=== PATIENT | female | born 2000 | race African-American/Black ===

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

== ENCOUNTER 2019-05-22 12:53 | Emergency (ER) | payer OTHER | END 2019-05-22 14:11 | disposition left against medical advice (07) | LOC: ERS 12:53 | DX: Z53.21 Procedure and treatment not carried out due to patient leaving prior to being seen by health care provider (principal) ==

== ENCOUNTER 2019-06-03 19:55 | Emergency (ER) | payer OTHER, SELFPAY ==
[2019-06-03 20:20] LABS: Pregnancy Test - Urine (BHCG) POSITIVE (Negative); Pregu Control Background? CLEAR/WHITE (CLR/WHITE); Pregu Control Bar Appear? YES (CONTROL BAR)
[2019-06-03 20:23] LABS: Bacteria/HPF None Seen HPF (None Seen); Bilirubin Negative (Negative); Blood, Urine Negative (Negative); Clarity Turbid (Clear); Glucose, Urine (Dipstick) Normal (Negative); Leukocyte 75 Leu/uL (Negative); Mucous/LPF Rare LPF (<2+); Nitrite Negative (Negative); Protein, Urine (Dipstick) 10 mg/dL (Neg-Trace); RBC/HPF 0-3 HPF (0-3); Renal Epithelial 0-3 HPF (None Seen); Urobilinogen Normal mg/dL (Less than 2); WBC/HPF 0-3 HPF (0-3)
[2019-06-03 20:38] LABS: #Basophils 0.1 thou/uL (0.0-0.2); #Eosinphils 0.1 thou/uL (0.0-0.7); #Lymphocytes 2.4 thou/uL (1.20-3.40); #Monocytes 0.6 thou/uL (0.11-0.59); #Neutrophils 3.7 thou/uL (1.40-6.50); %Basophils 1.3 % (0.0-1.0); %Lymphocytes 34.5 % (28.0-48.0); %Monocytes 8.4 % (0.0-4.0); %Neutrophils 53.8 % (31.0-61.0); Mean Corpuscular HGB CONC 33.9 g/dL (32.0-36.0); Mean Corpuscular Hemoglobin 30.3 pg (25.0-35.0); Mean Corpuscular Volume 89.4 fL (78.0-98.0); Mean Platelet Volume 7.5 fL (7.4-10.4); Platelet Count 219 thou/uL (130-400); RBC Distribution Width 13.2 % (11.5-14.5); Red Blood Cell (RBC) Count 3.95 mill/uL (4.00-5.20); White Blood Cell (WBC) Count 6.8 thou/uL (4.8-10.8)
[2019-06-03 20:58] LABS: ALT (SGPT) 7 U/L (8-55); AST (SGOT) 14 U/L (5-30); Albumin 4.1 g/dL (3.5-5.0); Alkaline Phosphatase 53 U/L (40-100); Anion Gap 11 mmol/L (10-20); BUN (Urea Nitrogen) 7 mg/dL (8.4-21.0); Bilirubin, Total Less than 0.2 mg/dL (0.2-1.2); Calc. Creatinine Clearance 0 mL/min (70-130); Calcium 9.3 mg/dL (7.8-10.44); Carbon Dioxide 26 mmol/L (22-29); Chloride 103 mmol/L (98-107); Estimated GFR-MDRD Greater than 90; Glucose 93 mg/dL (70-105); Potassium 3.9 mmol/L (3.5-5.1); Protein, Total 7.1 g/dL (6.0-8.3); Sodium 136 mmol/L (136-145)
--- NOTE | 2019-06-03 22:59 | ULT ---
EXAM: OB ultrasound COMPARISON: None HISTORY: female with lower abdominal pain TECHNIQUE: Multiplanar grayscale and color Doppler images were obtained in a transabdominal ult rasound. FINDINGS: There is a single live intrauterine with heart rate of 149 bpm. Estimated weight is 140 g. Average age of the fetus based off today's examination is 16 weeks 0 days. BPD 3.20 cm -- 16 weeks 0 days HC 11.97 cm -- 16 weeks 0 days AC 9.80 cm -- 15 weeks 6 days FL 2.02 cm -- 16 weeks 0 days The placenta is posterior in location without focal abnormality. Amniotic fluid volume is subjectivel y within normal limits. The cervix is normal in length. There is no evidence of placenta previa. IMPRESSION: Single live intrauterine with estimated age of 16 weeks 0 days.
== END 2019-06-04 00:13 | disposition home or self-care (01) ==
LOC: ERS 19:55
DX: O99.89 Other specified diseases and conditions complicating pregnancy, childbirth and the puerperium (principal); R10.30 Lower abdominal pain, unspecified; Z3A.16 16 weeks gestation of pregnancy
CPT/HCPCS: 36415; 76856; 80053; 81003; 81015; 81025; 84702; 85025; 86900; 86901; 93976

== ENCOUNTER 2019-11-13 16:43 | Day surgery (SDC) | payer OTHER ==
[2019-11-13] MEDS ORDERED: hydrALAZINE 20 MG/ML VIAL SLOW IVP PRN (17:01)
--- NOTE | 2019-11-13 17:03 | PDOC.LDHP ---
Labor and Delivery H&P Chief complaint: contractions HPI: 18 y/o G1 at 40w4d presents with ctx for the last few hours. Denies VB, LOF, or decreased FM. Reports she saw Dr. Quintero in first trimester but has otherwise not had care. ROS neg for HEENT, cv, pulm, gi, gu, neuro, psych, skin, musculoskeletal or constitutional symptoms other than mentioned above. OB History Details: First Current complications: none Past Medical History: None Current medications: none Previous surgical history: none Social history: none - Physical Exam Vital signs reviewed and normal: yes General: NAD, resting Lungs: nonlabored breathing Abdomen: gravid Extremeties: no edema FHT: category 1 (130s, mod variability, + accels, no decels) [place] contractions every: irregular - Vaginal Exam cm dilated: 2 Effacement: 50% Station: -2 - OB Labs Blood type: O RH: positive
[2019-11-13 17:22] VITALS: BP 132/85; TEMP 99.9; BMI 30.7
--- NOTE | 2019-11-13 17:32 | PDOC.LDHP ---
Labor and Delivery H&P Chief complaint: contractions HPI: 18 y/o G1 at 38w6d, patient of Dr. Yoon, presents with ctx. Denies VB, LOF, or decreased FM. ROS neg for HEENT, cv, pulm, gi, gu, neuro, psych, skin, musculoskeletal or constitutional symptoms other than mentioned above. OB History Details: First Current complications: none Past Medical History: None Current medications: pre-gray vitamins Previous surgical history: none Allergies/Adverse Reactions: Allergies Allergy/AdvReac Type Severity Reaction Status Date / Time penicillin G Allergy Verified 11/13/19 17:23 Social history: none - Physical Exam Vital signs reviewed and normal: yes General: NAD, resting Lungs: nonlabored breathing Abdomen: gravid Extremeties: no edema FHT: category 1 (120s, mod variability, + accels, no decels) [place] contractions every: 2 min - Vaginal Exam cm dilated: 2 (Unchanged after 2 hours) Effacement: 75% Station: -1 - Assessment 18 y/o G1 at 38w6d with no e/o active labor. Reports ctx are less painful and less frequent. status reassuring with reactive NST. - Plan -: D/c home with precautions. Advised to keep all appointments.
== END 2019-11-13 20:13 | disposition home or self-care (01) ==
LOC: L&D/OP 16:43
PROVIDERS: ATTEND Obstetrics & Gynecology
DX: O47.1 False labor at or after 37 completed weeks of gestation (principal); Z3A.38 38 weeks gestation of pregnancy; Z88.1 Allergy status to other antibiotic agents
CPT/HCPCS: 99283

== ENCOUNTER 2019-11-14 01:54 | Inpatient (IN) | payer OTHER ==
[2019-11-14] MEDS ORDERED: Lactated Ringer's 1,000 ML IV SCH (02:30)
[2019-11-14] MEDS: Butorphanol Tartrate 1 MG/ML VIAL SLOW IVP PRN ×2 (02:47→05:18)
[2019-11-14] MEDS ORDERED: HYDROcodone/Acetaminophen 5/325 mg Tablet PO PRN ×4 (04:24→16:06)
[2019-11-14] MEDS ORDERED: Ibuprofen 800 MG TAB PO PRN (04:24)
[2019-11-14] MEDS ORDERED: Ondansetron PF 4 MG/2 ML Vial IVP PRN ×3 (04:24→16:06)
[2019-11-14] MEDS ORDERED: Acetaminophen 500 MG TAB PO PRN (04:24)
[2019-11-14] MEDS ORDERED: Carboprost 250 MCG/ML AMP IM PRN (04:24)
[2019-11-14] MEDS ORDERED: Promethazine HCl 25 MG/ML VIAL IM PRN ×2 (04:24→07:33)
[2019-11-14] MEDS ORDERED: Diphenoxylate HCl/Atropine Tablet PO PRN ×2 (04:24)
[2019-11-14] MEDS ORDERED: NS / Oxytocin 40 units/1000ml 1,000 ML IV PRN (04:24)
[2019-11-14] MEDS ORDERED: Lidocaine 1% (PF) 30 ML VIAL SC PRN (04:24)
[2019-11-14] MEDS ORDERED: Methylergonovine 0.2 MG/ML VIAL IM PRN (04:24)
[2019-11-14] MEDS ORDERED: Misoprostol 200 MCG TAB PR PRN (04:24)
[2019-11-14] MEDS ORDERED: Vancomycin HCl 1.5 GM in Sodium Chloride 0.9% 250 ML 300 ML IVPB SCH (04:30)
[2019-11-14 04:32] VITALS: BMI 30.7
[2019-11-14] MEDS ORDERED: Vancomycin 1.5 GRAM/300 ML BAG 1.5 GM in Premix Bag 1 BAG IVPB SCH ×2 (04:45→14:00)
[2019-11-14] MEDS: Lactated Ringer's 1,000 ML IV SCH ×2 (05:08→16:05)
[2019-11-14 05:22] LABS: Hemoglobin 11.3 g/dL (12.0-16.0); Mean Corpuscular HGB CONC 33.2 g/dL (32.0-36.0); Mean Corpuscular Hemoglobin 28.8 pg (25.0-35.0); Mean Corpuscular Volume 86.7 fL (78.0-98.0); Mean Platelet Volume 9.6 fL (7.4-10.4); Platelet Count 270 thou/uL (130-400); RBC Distribution Width 13.7 % (11.5-14.5); Red Blood Cell (RBC) Count 3.94 mill/uL (4.00-5.20); White Blood Cell (WBC) Count 10.7 thou/uL (4.8-10.8)
[2019-11-14 06:09] LABS: HBSAg Index 0.21 S/CO (0-0.99); Hep B Surf Ag Non-Reactive S/CO (NonReactive); Syphilis Antibody Nonreactive (Nonreactive)
[2019-11-14] MEDS: hydrALAZINE 20 MG/ML VIAL SLOW IVP PRN ×2 (06:15→11:27)
[2019-11-14] MEDS ORDERED: Fentanyl 4 mcg/Bup 0.1% Cadd 100 ML ONE (06:27)
[2019-11-14] MEDS ORDERED: Acetaminophen 325 MG TAB PO PRN (07:33)
[2019-11-14] MEDS ORDERED: EPHEDRINE 25 MG/5 ML SYRINGE SLOW IVP PRN (07:33)
[2019-11-14] MEDS ORDERED: diphenhydrAMINE 50 MG/ML VIAL IVP PRN (07:33)
[2019-11-14] MEDS ORDERED: Naloxone HCl 0.4 mg/ml Vial IVP PRN ×2 (07:33)
[2019-11-14] MEDS ORDERED: Lactated Ringer's 500 ML IV PRN (07:33)
[2019-11-14] MEDS ORDERED: Communication Order-Pharmacy FS SCH (07:45)
[2019-11-14] MEDS ORDERED: Fentanyl 4 mcg/Bupivacaine 0.1% Cassette 100 ML EPIDURAL SCH (07:45)
--- NOTE | 2019-11-14 08:34 | PDOC.LDHP ---
Labor and Delivery H&P Chief complaint: contractions HPI: Pt presents w painful ctx. Current gestational age (weeks): 39 Due date: 11/21/19 Dating criteria: last menstrual period, second trimester ultrasound Grav: 1 Para: 0 Current complications: none Abnormal US findings: No Current medications: pre-gray vitamins Previous surgical history: none Allergies/Adverse Reactions: Allergies Allergy/AdvReac Type Severity Reaction Status Date / Time penicillin G Allergy Verified 11/13/19 17:23 Social history: none - Physical Exam Vital signs reviewed and normal: yes Abnormal vital signs: mild range BP with an isolated severe range noted General: breathing through contractions Heart: RRR Lungs: CTAB Abdomen: gravid Extremeties: no edema FHT: category 1 - Vaginal Exam cm dilated: 10 Effacement: 100% Station: 1+ - OB Labs Blood type: O RH: positive Antibody Screen: negative HIV: negative RPR: negative HEPSAg: negative 1 hour GCT: negative GBS: positive Urine drug screen: negative Rubella: immune - Assessment L&D Assessment: term patient in labor - Plan Plan: admit to L&D, GBS antibiotic prophylaxis, informed consent obtained, anesthesia consult for pain management -: Pt presented in labor @ 4cm, has progressed to 10cm and +1. Will transition to 2nd stage. FHT reassuring, Vancomycin x 1 given for GBS pos, PCN allergy and clinda resistance.
[2019-11-14] MEDS ORDERED: Bupivacaine 0.25% HCL 30 ML VIAL ONE (09:05)
--- NOTE | 2019-11-14 11:16 | PDOC.OPDEL ---
OB Operative/Delivery Note Delivery Dr/Surgeon: Car Pre-Delivery Diagnosis: active labor Procedure/Post Delivery Dx: spontaneous vaginal delivery Weeks gestation: 39 Anesthesia: epidural - Findings A Sex: female - Additional Findings/Plan Placenta delivered: spontaneous Repaired Obstetrical Laceration: none Estimated blood loss: 100ml Post delivery plan: routine recovery
[2019-11-14] MEDS ORDERED: hydrALAZINE 20 MG/ML VIAL ONE (11:25)
[2019-11-14] MEDS ORDERED: Calcium Gluconate 4.6 MEQ in Sodium Chloride 0.9% 100 ML IVPB PRN (11:33)
--- NOTE | 2019-11-14 11:33 | PDOC.EVN ---
Event Note - Event Note Event Note: Pt w severe range BP, now requiring hydralazine. Will start magnesium for seizure prophylaxis.
[2019-11-14] MEDS ORDERED: Magnesium Sulfate 20 GM/WATER 500 ML BAG IVPB SCH (11:45)
[2019-11-14] MEDS: Magnesium Sulfate 20 gm/500 ml 20 GM/500 ML BAG IVPB SCH ×2 (12:34→21:30)
[2019-11-14] MEDS ORDERED: Benzocaine-Menthol 82.5 ML CAN TOP PRN (16:06)
[2019-11-14] MEDS ORDERED: hydrALAZINE 20 MG/ML VIAL SLOW IVP PRN (16:06)
[2019-11-14] MEDS ORDERED: Lanolin Ointment 7 GM TUBE TOP PRN (16:06)
[2019-11-14] MEDS ORDERED: NS / Oxytocin 40 units/1000ml 1,000 ML IV SCH (16:06)
[2019-11-14] MEDS ORDERED: Bisacodyl 10 MG SUPP PR PRN (16:06)
[2019-11-14] MEDS ORDERED: diphenhydrAMINE 25 MG CAP PO PRN (16:06)
[2019-11-14] MEDS ORDERED: Milk Of Magnesia 30 ML UDCUP PO PRN (16:06)
[2019-11-14] MEDS: Ibuprofen 800 MG TAB PO SCH (21:30)
[2019-11-14] MEDS: Docusate Calcium (SURFAK) 240 MG CAP PO SCH (21:37)
[2019-11-14] MEDS ORDERED: NIFEdipine 10 MG CAP PO PRN (21:51)
[2019-11-15] MEDS: Ferrous Sulfate 325 MG TAB PO SCH ×3 (02:09→18:06)
[2019-11-15] MEDS: Lactated Ringer's 1,000 ML IV SCH ×2 (02:09→08:05)
[2019-11-15 06:49] LABS: Hemoglobin 9.9 g/dL (12.0-16.0)
[2019-11-15 07:12] LABS: ALT (SGPT) 7 U/L (8-55); AST (SGOT) 20 U/L (5-30); Albumin 2.7 g/dL (3.5-5.0); Alkaline Phosphatase 191 U/L (40-100); Anion Gap 10 mmol/L (10-20); BUN (Urea Nitrogen) Less than 4 mg/dL (8.4-21.0); Bilirubin, Total 0.3 mg/dL (0.2-1.2); Calc. Creatinine Clearance 162 mL/min (70-130); Calcium 6.8 mg/dL (7.8-10.44); Carbon Dioxide 27 mmol/L (22-29); Chloride 104 mmol/L (98-107); Estimated GFR-MDRD Greater than 90; Globulin 2.5 g/dL (2.4-3.5); Glucose 81 mg/dL (70-105); Protein, Total 5.2 g/dL (6.0-8.3); Sodium 138 mmol/L (136-145)
[2019-11-15] MEDS: Magnesium Sulfate 20 gm/500 ml 20 GM/500 ML BAG IVPB SCH (08:05)
[2019-11-15] MEDS: Ibuprofen 800 MG TAB PO SCH ×2 (08:05→16:28)
[2019-11-15] MEDS: Docusate Calcium (SURFAK) 240 MG CAP PO SCH ×2 (08:06→21:48)
--- NOTE | 2019-11-15 08:11 | PDOC.PP ---
Post Progress Note Post Day #: 1 Subjective: doing well, hungry, had some chest pain last night that she said resolved w position change, baby doing well PO intake tolerated: yes Flatus: yes Ambulation: yes Weight Weight 185 lb 120-140/70-90s - Physical Examination General: NAD Respiratory: non-labored breathing Abdominal: no distention Skin: no rash Neurological: no gross focal deficits Psychiatric: A&Ox3, normal affect Result Diagrams: 11/15/19 06:31 11/15/19 06:31 Additional Labs: Post Labs Blood Type O POSITIVE 11/14/19 05:10 Hep Bs Antigen Non-Reactive S/CO (NonReactive) 11/14/19 05:10 (1) Severe preeclampsia Code(s): O14.10 - SEVERE PRE-ECLAMPSIA, UNSPECIFIED TRIMESTER Status: Acute (2) Vaginal delivery Code(s): O80 - ENCOUNTER FOR FULL-TERM UNCOMPLICATED DELIVERY Status: Acute - Assessment/Plan PPD1 on magnesium, doing well BP mild range overnight. Discussed regular diet, DC mag at noon and monitor BP on PP.
[2019-11-15] MEDS ORDERED: Adacel (T-DAP) 0.5 ML SYRINGE IM ONE (09:00)
[2019-11-15] MEDS ORDERED: Prenatal Vitamin 1 TAB PO SCH (09:00)
[2019-11-15] MEDS ORDERED: Bisacodyl 10 MG SUPP PR PRN (15:04)
[2019-11-15] MEDS ORDERED: diphenhydrAMINE 25 MG CAP PO PRN (15:04)
[2019-11-15] MEDS ORDERED: HYDROcodone/Acetaminophen 5/325 mg Tablet PO PRN ×2 (15:04)
[2019-11-15] MEDS ORDERED: NS / Oxytocin 40 units/1000ml 1,000 ML IV SCH (15:04)
[2019-11-15] MEDS ORDERED: Milk Of Magnesia 30 ML UDCUP PO PRN (15:04)
[2019-11-15] MEDS ORDERED: Ondansetron PF 4 MG/2 ML Vial IVP PRN (15:04)
[2019-11-15] MEDS ORDERED: hydrALAZINE 20 MG/ML VIAL SLOW IVP PRN (15:04)
[2019-11-15] MEDS ORDERED: Benzocaine-Menthol 82.5 ML CAN TOP PRN (15:04)
[2019-11-15] MEDS ORDERED: Lanolin Ointment 7 GM TUBE TOP PRN (15:04)
[2019-11-16] MEDS: Ibuprofen 800 MG TAB PO SCH ×3 (00:57→08:51)
[2019-11-16] MEDS: Ferrous Sulfate 325 MG TAB PO SCH (08:28)
[2019-11-16] MEDS: Docusate Calcium (SURFAK) 240 MG CAP PO SCH (08:28)
[2019-11-16] MEDS: Lactated Ringer's 1,000 ML IV SCH (08:51)
[2019-11-16] MEDS ORDERED: Prenatal Vitamin 1 TAB PO SCH (09:00)
--- NOTE | 2019-11-16 10:17 | PDOC.PP ---
Post Progress Note Post Day #: 2 Subjective: doing well, no PIH sx, formula feeding PO intake tolerated: yes Flatus: yes Ambulation: yes Vital Signs (12 hours) Temp Pulse Resp BP Pulse Ox 11/16/19 08:41 99.0 F 69 20 144/79 H 96 11/16/19 05:00 98.6 F 71 18 130/85 11/16/19 00:50 98.9 F 75 18 143/83 H Weight Weight 185 lb - Physical Examination General: NAD Respiratory: non-labored breathing Abdominal: no distention Fundus firm & at: below umb Neurological: no gross focal deficits Psychiatric: A&Ox3, normal affect Result Diagrams: 11/15/19 06:31 11/15/19 06:31 Additional Labs: Post Labs Blood Type O POSITIVE 11/14/19 05:10 Hep Bs Antigen Non-Reactive S/CO (NonReactive) 11/14/19 05:10 (1) Severe preeclampsia Code(s): O14.10 - SEVERE PRE-ECLAMPSIA, UNSPECIFIED TRIMESTER Status: Acute (2) Vaginal delivery Code(s): O80 - ENCOUNTER FOR FULL-TERM UNCOMPLICATED DELIVERY Status: Acute - Assessment/Plan PPD2, doing well, mild to normal range BP off mag. Plan for DC later today if BP stable.
[2019-11-16] MEDS ORDERED: Sodium Chloride 0.9% 0 ML ONE (10:27)
[2019-11-16 11:52] VITALS: BP 141/87; TEMP 98.6
== END 2019-11-16 12:30 | disposition home or self-care (01) | DRG 807 ==
LOC: L&D/OP 01:54 → L&D 04:24 → 3SW 11-15 15:11
PROVIDERS: ADMIT Obstetrics & Gynecology; ATTEND Obstetrics & Gynecology
PROC: 10E0XZZ Delivery of Products of Conception, External Approach (ICD-10-PCS; principal; 2019-11-14)
DX: O14.14 Severe pre-eclampsia complicating childbirth (principal); Z37.0 Single live birth; O99.824 Streptococcus B carrier state complicating childbirth; Z3A.39 39 weeks gestation of pregnancy; Z88.0 Allergy status to penicillin
CPT/HCPCS: 36415; 51701; 80053; 83735; 85014; 85018; 85027; 86780; 86850; 86900; 86901; 87340; 99283; 99285; J0360; J0595; J3475; S0020

== ENCOUNTER 2019-12-03 01:24 | Emergency (ER) | payer OTHER | END 2019-12-03 01:55 | disposition home or self-care (01) | LOC: ERS 01:24 | DX: O99.63 Diseases of the digestive system complicating the puerperium (principal); K80.70 Calculus of gallbladder and bile duct without cholecystitis without obstruction ==

== ENCOUNTER 2019-12-21 05:35 | Outpatient (CLI) | payer OTHER ==
[2019-12-21 11:34] LABS: BHCG - Serum Negative (NEGATIVE); Pregs Control Background? CLEAR/WHITE (CLR/WHITE); Pregs Control Bar Appear? YES (CONTROL BAR)
[2019-12-21 11:36] LABS: Anion Gap 13 mmol/L (10-20); BUN (Urea Nitrogen) 13 mg/dL (8.4-21.0); Calc. Creatinine Clearance 0 mL/min (70-130); Calcium 8.8 mg/dL (7.8-10.44); Carbon Dioxide 23 mmol/L (22-29); Chloride 107 mmol/L (98-107); Estimated GFR-MDRD Greater than 90; Glucose 75 mg/dL (70-105); Potassium 3.5 mmol/L (3.5-5.1); Sodium 139 mmol/L (136-145)
[2019-12-21 12:46] LABS: Band 1 % (5-11); Eosinophils 1 % (0-10); Hemoglobin 11.4 g/dL (12.0-16.0); Hypochromia SLIGHT = 6-15 cells (100X) (0-5/hpf); Lymphocytes 55 % (28-48); MDiff Complete? YES; Mean Corpuscular HGB CONC 30.9 g/dL (32.0-36.0); Mean Corpuscular Hemoglobin 27.4 pg (25.0-35.0); Mean Corpuscular Volume 88.7 fL (78.0-98.0); Mean Platelet Volume 8.6 fL (7.4-10.4); Monocytes 5 % (0-4); Neutrophil 27 % (31-61); Platelet Count 232 thou/uL (130-400); Platelet Morphology Comment Appears Adequate; RBC Distribution Width 14.2 % (11.5-14.5); Reactive Lymphocytes 11 % (0-10); Red Blood Cell (RBC) Count 4.17 mill/uL (4.00-5.20); Target Cells SLIGHT = 2-5 cells (100X) (0-1/hpf); White Blood Cell (WBC) Count 4.2 thou/uL (4.8-10.8)
[2019-12-21 17:17] LABS: SARS-CoV-2 MS2 Positive; SARS-CoV-2 N Gene Negative; SARS-CoV-2 S Gene Negative; SARS-CoV-2 orf1ab Negative
== END 2019-12-21 05:36 | disposition home or self-care (01) ==
LOC: LABBT 05:35
PROVIDERS: ATTEND Surgery
DX: Z01.812 Encounter for preprocedural laboratory examination (principal); Z11.59 Encounter for screening for other viral diseases; K80.80 Other cholelithiasis without obstruction
CPT/HCPCS: 80048; 84703; 85025; 87635; U0003

== ENCOUNTER 2019-12-26 06:06 | Day surgery (SDC) | payer OTHER ==
[2019-12-21 08:54] VITALS: BMI 24.1
[2019-12-26] MEDS ORDERED: Bupivacaine 0.25% HCL 30 ML VIAL ONE (06:35)
[2019-12-26] MEDS ORDERED: Lidocaine 1% w/Epinephrine 1:100K 20 ML VIAL ONE (06:35)
[2019-12-26] MEDS ORDERED: Midazolam HCl 2 mg/2 ml Vial ONE (06:36)
[2019-12-26] MEDS ORDERED: Fentanyl 100 MCG/2 ML VIAL ONE (06:36)
[2019-12-26] MEDS ORDERED: Levofloxacin 500 mg/D5W 100 ml Premix Bag ONE (07:28)
[2019-12-26] MEDS ORDERED: Iothalamate Meglumine 60% 30 ML VIAL FS ONE (07:34)
--- NOTE | 2019-12-26 08:34 | RAD ---
EXAM: XR Cholangiogram in Surgery PROVIDED CLINICAL HISTORY: Cholecystectomy. COMPARISON: None FINDINGS/IMPRESSION:: Single intraoperative portable AP image from intraoperative cholangiogram is submitted. Surgical inst ruments overlie the epigastric region and right upper quadrant. The cystic duct is cannulated. There is opacification of the common duct with evidence of free spill of contrast into the small angelia l. Visualized intrahepatic ducts and common duct appear to be normal in caliber. Although a portion of the common duct is obscured due to overlying instrument, there is otherwise no filling defect appr eciated. Correlation with intraoperative findings is recommended. Fluoroscopy: Time-22 seconds Dose-1.14 mGy
--- NOTE | 2019-12-26 08:37 | OP ---
DATE OF PROCEDURE: 12/26/2019 PREOPERATIVE DIAGNOSIS: Gallstones. POSTOPERATIVE DIAGNOSIS: Gallstones. PROCEDURE PERFORMED: Laparoscopic cholecystectomy with intraoperative cholangiogram. ANESTHESIA: General. ESTIMATED BLOOD LOSS: Minimal. COMPLICATIONS: None. SPECIMENS: Gallbladder. FINDINGS: Normal cholangiogram. DESCRIPTION OF PROCEDURE: The patient was taken to the operating room and laid supine on the operating room table. After general anesthetic was obtained, the abdomen was prepped and draped in a sterile fashion. Curved incision was made below the umbilicus. Cautery was dissected down to and score the fascia. Abdominal cavity was entered bluntly using a Hannah clamp. Holding stitch of PDS was placed on each side of fascia. Poly trocar was placed. High-flow pneumoperitoneum was obtained. An upper midline 5 mm port and 2 right upper quadrant 5 mm ports were placed under direct visualization. The gallbladder was retracted from the gallbladder fossa. The peritoneum was opened anteriorly and posteriorly. The critical view triangle was seen showing only the cystic duct and cystic artery branching medial to lateral and no other branching structures. A clip was placed high on the cystic duct and a small ductotomy was made just proximal to that. A cholangiocatheter was brought in through a separate stab incision and placed in the cystic duct and a cholangiogram was performed, which showed good contrast flow into the duodenum without obstruction. Cholangiocatheter was removed and 2 clips were placed proximally and one distally and the cystic duct was cut using laparoscopic scissors. The cystic artery was taken using 2 clips proximally and one clip distally, cut using laparoscopic scissors. The gallbladder was retracted out of the gallbladder fossa using cautery, placed in an Endo Catch bag and brought out through the Poly. There was no bleeding or bile in the liver bed. The right upper quadrant was irrigated using sterile solution. All port sites were infiltrated using local anesthetic. All ports were removed under camera visualization. Pneumoperitoneum was let down. PDS was used to close the fascial defect below the umbilicus. All incisions were closed using 4-0 Monocryl and Dermabond. The patient was sent to Recovery in stable condition. All instrument counts, needle counts, and lap counts were correct. Job ID: [id number]
[2019-12-26] MEDS ORDERED: Dexamethasone 20 MG/5 ML VIAL ONE (11:20)
[2019-12-26] MEDS ORDERED: Ketorolac Tromethamine 30 MG/ML VIAL ONE (11:20)
[2019-12-26] MEDS ORDERED: Lidocaine 1% PF 5 ML VIAL ONE (11:20)
[2019-12-26] MEDS ORDERED: Glycopyrrolate 0.2 MG/ML 5 ML SYRINGE ONE (11:20)
[2019-12-26] MEDS ORDERED: Ondansetron PF 4 MG/2 ML Vial ONE (11:20)
[2019-12-26] MEDS ORDERED: PROPOFOL 200 MG/20 ML VIAL ONE (11:20)
[2019-12-26] MEDS ORDERED: Rocuronium Bromide 10 MG/ML (10ML VIAL) ONE (11:20)
== END 2019-12-26 11:20 | disposition home or self-care (01) ==
LOC: SDC 06:06
PROVIDERS: ATTEND Surgery
PROC: 0FT44ZZ Resection of Gallbladder, Percutaneous Endoscopic Approach (ICD-10-PCS; principal; 2019-12-26)
PROC: BF121ZZ Fluoroscopy of Gallbladder using Low Osmolar Contrast (ICD-10-PCS; principal; 2019-12-26)
DX: K80.10 Calculus of gallbladder with chronic cholecystitis without obstruction (principal); Z88.0 Allergy status to penicillin
CPT/HCPCS: 47532; 88304; J1100; J1610; J1885; J1956; J2001; J2250; J2405; J2704; J3010; S0020

== ENCOUNTER 2020-01-29 15:18 | Emergency (ER) | payer OTHER | END 2020-01-29 15:55 | disposition home or self-care (01) | LOC: ERS 15:18 | DX: Z20.828 Contact with and (suspected) exposure to other viral communicable diseases (principal) | CPT/HCPCS: 87635; 99283; U0003 ==

== ENCOUNTER 2022-08-26 07:30 | Emergency (ER) | payer OTHER ==
[2022-08-26 08:37] LABS: #Eosinphils 0.1 thou/uL (0.0-0.7); #Lymphocytes 0.8 thou/uL (1.20-3.40); #Monocytes 0.4 thou/uL (0.11-0.59); #Neutrophils 2.4 thou/uL (1.40-6.50); %Basophils 0.9 % (0.0-1.0); %Eosinophils 1.8 % (0.0-10.0); %Lymphocytes 22.4 % (21.0-51.0); %Monocytes 9.5 % (0.0-10.0); %Neutrophils 65.5 % (42.0-75.0); Hemoglobin 14.1 g/dL (12.0-16.0); Mean Corpuscular Hemoglobin 29.9 pg (27.0-31.0); Mean Corpuscular Volume 90.7 fl (78.0-98.0); Mean Platelet Volume 7.7 fL (7.4-10.4); Platelet Count 225 10x3/uL (130-400); RBC Distribution Width 12.2 % (11.5-14.5); Red Blood Cell (RBC) Count 4.71 mill/uL (4.20-5.40); White Blood Cell (WBC) Count 3.7 10x3/uL (4.8-10.8)
[2022-08-26 08:47] LABS: BHCG - Serum Negative (NEGATIVE); Pregs Control Background? CLEAR/WHITE (CLR/WHITE); Pregs Control Bar Appear? YES (CONTROL BAR)
[2022-08-26 08:58] LABS: ALT (SGPT) 10 U/L (8-55); AST (SGOT) 18 U/L (5-34); Albumin 4.1 g/dL (3.5-5.0); Alkaline Phosphatase 61 U/L (40-110); Anion Gap 11 mmol/L (10-20); BUN (Urea Nitrogen) 9 mg/dL (7.0-18.7); Bilirubin, Total 0.6 mg/dL (0.2-1.2); Calc. Creatinine Clearance 0 mL/min (70-130); Calcium 8.6 mg/dL (7.8-10.44); Carbon Dioxide 22 mmol/L (22-29); Chloride 105 mmol/L (98-107); Estimated GFR 117; Globulin 3.1 g/dL (2.4-3.5); Glucose 83 mg/dL (70-105); Lipase 12 U/L (8-78); Potassium 4.1 mmol/L (3.5-5.1); Protein, Total 7.2 g/dL (6.0-8.3); Sodium 134 mmol/L (136-145)
[2022-08-26] MEDS ORDERED: Ondansetron ODT 4 MG TAB ONE (09:05)
[2022-08-26] MEDS ORDERED: Dicyclomine 20 MG/2 ML VIAL ONE (09:07)
== END 2022-08-26 09:55 | disposition home or self-care (01) ==
LOC: ERS 07:30
DX: R10.13 Epigastric pain (principal); D72.819 Decreased white blood cell count, unspecified
CPT/HCPCS: 36415; 71045; 80053; 83690; 84703; 85025; 96372; Q0162